=== PATIENT | female | born 1975 | race Caucasian/White ===

== ENCOUNTER 2020-09-16 19:36 | Emergency (ER) | payer OTHER ==
[2020-09-16] MEDS ORDERED: ALBUTEROL SO4 0.083% IH SOL 2.5 MG/3 ML VIAL.NEB. NEB ONE (19:58)
[2020-09-16 20:16] VITALS: BP 118/65; PULSE 68; TEMP 98.9; BMI 29.4
[2020-09-16] MEDS ORDERED: ALBUTEROL SO4 HFA INHALER IH ONE (20:17)
== END 2020-09-16 20:20 | disposition home or self-care (01) ==
LOC: FER 19:36
PROC: 3E0F7GC Introduction of Other Therapeutic Substance into Respiratory Tract, Via Natural or Artificial Opening (ICD-10-PCS; principal; 2020-09-16)
DX: R05 Cough (principal); R50.9 Fever, unspecified; J02.9 Acute pharyngitis, unspecified; U07.1 COVID-19
CPT/HCPCS: 99283-25